=== PATIENT | male | born 1970 ===

== ENCOUNTER 2020-11-13 20:11 | Emergency (ER) | payer SELFPAY ==
[~2020-11-13] VITALS: Ht 167.6 cm; Wt 68.2 kg
[2020-11-13 20:30] VITALS: BP 138/95
== END 2020-11-13 22:04 | disposition left against medical advice (07) ==
LOC: EMS 20:13
DX: Z00.8 Encounter for other general examination (principal); Z53.21 Procedure and treatment not carried out due to patient leaving prior to being seen by health care provider